=== PATIENT | female | born 1990 | race Caucasian/White ===

== ENCOUNTER 2017-12-22 15:22 | Observation (INO) | payer OTHER ==
[2017-12-22] MEDS ORDERED: PNV11TAB PO (15:49)
[2017-12-22 15:50] VITALS: BP 110/67
== END 2017-12-22 17:20 | disposition home or self-care (01) ==
LOC: 4S 15:22
PROVIDERS: ADMIT Obstetrics & Gynecology; ATTEND Obstetrics & Gynecology
DX: O42.92 Full-term premature rupture of membranes, unspecified as to length of time between rupture and onset of labor (principal); Z3A.38 38 weeks gestation of pregnancy
CPT/HCPCS: 59025; 76805; G0378

== ENCOUNTER 2017-12-27 20:30 | Observation (INO) | payer OTHER ==
[~2017-12-27] VITALS: Ht 170.2 cm; Wt 87.5 kg
[~2017-12-27 20:30] MED LIST: PNV11TAB PO
[2017-12-27 21:01] VITALS: BP 112/70
== END 2017-12-27 22:40 | disposition home or self-care (01) ==
LOC: 4S 20:30
PROVIDERS: ADMIT Obstetrics & Gynecology; ATTEND Obstetrics & Gynecology
DX: O36.8130 Decreased fetal movements, third trimester, not applicable or unspecified (principal); O26.893 Other specified pregnancy related conditions, third trimester; R10.9 Unspecified abdominal pain; Z3A.39 39 weeks gestation of pregnancy
CPT/HCPCS: 59025; G0378

== ENCOUNTER 2017-12-30 09:10 | Inpatient (IN) | payer OTHER ==
[~2017-12-30] VITALS: Ht 167 cm; Wt 88.6 kg
[2017-12-30] MEDS ORDERED: RINGERS SOLUTION,LACTATED 1,000 ML IV PRN (09:11)
[2017-12-30] MEDS ORDERED: CITRIC ACID/SODIUM CITRATE 30 ML SOLUTION UDCUP PO PRN (09:15)
[2017-12-30] MEDS ORDERED: FentaNYL CITRATE-PF 100 MCG/2 ML VIAL IVP PRN (09:15)
[2017-12-30] MEDS ORDERED: LIDOCAINE HCL/PF 1% 30 ML VIAL INJ PRN (09:15)
[2017-12-30] MEDS ORDERED: METOCLOPRAMIDE HCL 5 MG/ML 2 ML VIAL IVP PRN (09:15)
[2017-12-30] MEDS ORDERED: OXYTOCIN 30 UNITS/LACT RINGERS 500 ML IV ONE (09:15)
[2017-12-30] MEDS ORDERED: METHYLERGONOVINE MALEATE 0.2 MG/ML VIAL IM PRN (09:15)
[2017-12-30] MEDS ORDERED: OXYGEN THERAPY IH SCH (09:15)
[2017-12-30 09:20] VITALS: BP 114/73
[2017-12-30] MEDS ORDERED: RINGERS SOLUTION,LACTATED 1,000 ML IV ONE (09:37)
[2017-12-30] MEDS: RINGERS SOLUTION,LACTATED 1,000 ML IV SCH ×2 (09:39→17:05)
[2017-12-30 09:48] LABS: BASOPHILS % (AUTO) 0.5 % (0.0-2.0); EOSINOPHILS % (AUTO) 1.2 % (1.0-6.0); HEMOGLOBIN 13.1 g/dL (12.0-16.0); LYMPHOCYTES # (AUTO) 1.8 K/uL (1.0-4.8); LYMPHOCYTES % (AUTO) 19.1 % (22.0-44.0); MEAN CORPUSCULAR HEMOGLOBIN 29.2 pg (26.0-34.0); MEAN CORPUSCULAR HGB CONC 34.3 G/dL (31.0-37.0); MEAN CORPUSCULAR VOLUME 85 fL (80-100); MONOCYTES # (AUTO) 0.7 K/uL (0.1-1.0); MONOCYTES % (AUTO) 7.8 % (2.0-9.0); NEUTROPHILS # (AUTO) 6.7 K/uL (1.8-7.7); NEUTROPHILS % (AUTO) 71.4 % (40.0-70.0); PLATELET COUNT (AUTO) 223 K/uL (150-450); RED BLOOD CELL COUNT(AUTO) 4.47 MIL/uL (4.00-5.20); RED CELL DISTRIBUTION WIDTH 13.6 % (11.5-14.5)
[2017-12-30] MEDS ORDERED: MISOPROSTOL 25 MCG TABLET VG ONE ×2 (10:00→15:00)
[2017-12-30] MEDS ORDERED: OXYTOCIN 30 UNITS/LACT RINGERS 500 ML IV PRN (22:29)
[2017-12-31] MEDS: RINGERS SOLUTION,LACTATED 1,000 ML IV SCH ×2 (01:35→10:02)
[2017-12-31] MEDS ORDERED: GLYCERIN/WITCH HAZEL LEAF 40 PADS JAR TP PRN (17:15)
[2017-12-31] MEDS ORDERED: LANOLIN 7 GM OINTMENT TP PRN (17:15)
[2017-12-31] MEDS ORDERED: BENZOCAINE 20%/MENTHOL 56 GM SPRAY CANISTER TP PRN (17:15)
[2017-12-31] MEDS ORDERED: ACETAMINOPHEN/CODEINE 300-30 MG TABLET PO PRN ×2 (17:15)
[2017-12-31] MEDS: MAGNESIUM HYDROXIDE SUSPENSION 30 ML UDCUP PO SCH (21:25)
[2017-12-31] MEDS: ACETAMINOPHEN 500 MG TABLET PO SCH (21:25)
[2018-01-01] MEDS: MAGNESIUM HYDROXIDE SUSPENSION 30 ML UDCUP PO SCH (08:33)
[2018-01-01] MEDS: ACETAMINOPHEN 500 MG TABLET PO SCH (08:33)
[2018-01-01] MEDS ORDERED: IBUP-2071 PO (13:55)
[2018-01-01] MEDS ORDERED: DSS100 PO (13:57)
== END 2018-01-01 17:40 | disposition home or self-care (01) | DRG 775 ==
LOC: 4S 09:10 → OBSVTOIN 09:10
PROVIDERS: ADMIT Obstetrics & Gynecology; ATTEND Obstetrics & Gynecology
PROC: 0W8NXZZ Division of Female Perineum, External Approach (ICD-10-PCS; principal; 2017-12-31)
PROC: 10E0XZZ Delivery of Products of Conception, External Approach (ICD-10-PCS; 2017-12-31)
PROC: 3E0R3BZ Introduction of Anesthetic Agent into Spinal Canal, Percutaneous Approach (ICD-10-PCS; 2017-12-31)
PROC: 00HU33Z Insertion of Infusion Device into Spinal Canal, Percutaneous Approach (ICD-10-PCS; 2017-12-31)
DX: O80 Encounter for full-term uncomplicated delivery (principal); Z3A.39 39 weeks gestation of pregnancy; Z37.0 Single live birth
CPT/HCPCS: 86850; 86900; 86901; J2590; J7120